=== PATIENT | male | born 1955 | race Caucasian/White ===

== ENCOUNTER 2016-03-23 09:58 | Emergency (ER) | payer BC ==
[2016-03-23 10:14] VITALS: BP 159/102
--- NOTE | 2016-03-23 11:18 | UC ---
Respiratory Complaint HPI - HPI Summary HPI Summary: 10 DAYS OF SINUS CONGESTION, CHEST CONGESTIONS, PND, PRODUCTUVE COUGH AND PAROXYSMS OF COUGH. DENIES FEVER. HAS HAD SEVERAL EPISODES OF LOOSE STOOLS. - History of Current Complaint Chief Complaint: UCRespiratory Stated Complaint: CHEST CONGESTION Time Seen by Provider: 03/23/16 11:11 Hx Obtained From: Patient Onset/Duration: Gradual Onset, Lasting Days, Still Present Timing: Constant Severity Initially: Moderate Severity Currently: Moderate Pain Intensity: 0 Pain Scale Used: 0-10 Numeric Character: Cough: Productive Aggravating Factors: Nothing Alleviating Factors: Nothing Associated Signs And Symptoms: Positive: URI, Nasal Congestion, Hoarseness, Sinus Discomfort - Allergies/Home Medications Allergies/Adverse Reactions: Allergies Allergy/AdvReac Type Severity Reaction Status Date / Time Lisinopril Allergy Intermediate swelling Verified 05/29/15 08:36 in groin PMH/Surg Hx/FS Hx/Imm Hx Endocrine History Of: Reports: Diabetes - TYPE 2 Denies: Thyroid Disease Cardiovascular History Of: Reports: Hypertension - ON MEDS Denies: Cardiac Disorders Respiratory History Of: Reports: Bronchitis - HX OF Denies: COPD, Asthma GI/ History Of: Denies: Ulcer - Surgical History Surgical History: Yes Surgery Procedure, Year, and Place: LEFT KNEE, 1982, [facility] [place]. RIGHT [place]NEE 2003, [facility] [place]. Hydrocele Surgery 2011, 2015. RIGHT KNEE 03/2014, [facility] [place] - Family History Known Family History: Negative: Hypertension - Social History Alcohol Use: Weekly Alcohol Amount: 8 PER WEEK Substance Use Type: None Smoking Status (MU): Former Smoker Type: Cigarettes Amount Used/How Often: SOCIAL Have You Smoked in the Last Year: No When Did the Patient Quit Smoking/Using Tobacco: 40 YEARS AGO 1974 Household Exposure Type: Cigarettes Review of Systems Constitutional: Negative ENT: Nasal Discharge Respiratory: Cough Cardiovascular: Negative Gastrointestinal: Negative All Other Systems Reviewed And Are Negative: Yes Physical Exam Triage Information Reviewed: Yes Appearance: Well-Appearing, No Pain Distress, Well-Nourished Vital Signs: Initial Vital Signs Temp 97.4 F 03/23/16 10:08 Pulse 68 03/23/16 10:08 Resp 22 03/23/16 10:08 BP 159/102 03/23/16 10:08 Pulse Ox 98 03/23/16 10:08 Vital Signs Reviewed: Yes Eyes: Positive: Conjunctiva Clear ENT: Positive: Hearing grossly normal, Pharyngeal erythema, TMs normal Neck: Positive: Supple, Nontender, No Lymphadenopathy Respiratory Exam: Normal Cardiovascular Exam: Normal Abdomen Description: Positive: Soft Musculoskeletal: Positive: No Edema Neurological: Positive: Alert Psychological: Positive: Age Appropriate Behavior Skin: Negative: rashes UC Diagnostic Evaluation - Laboratory O2 Sat by Pulse Oximetry: 98 Respiratory Course/Dx - Differential Dx/Diagnosis Provider Diagnoses: ACUTE BRONCHITIS Discharge - Discharge Plan Condition: Stable Disposition: HOME Prescriptions: Azithromycin [Azithromycin 500 MG TAB] 500 mg PO DAILY #5 tab Patient Education Materials: Acute Bronchitis (ED) Referrals: Efrain Traylor MD [Primary Care Provider] - If Needed
== END 2016-03-23 11:26 | disposition home or self-care (01) ==
LOC: UCEAST 09:58
DX: J20.9 Acute bronchitis, unspecified (principal); Z88.8 Allergy status to other drugs, medicaments and biological substances; Z87.891 Personal history of nicotine dependence
CPT/HCPCS: 99212; G0463

== ENCOUNTER → 2016-12-25 02:06 | Emergency (ER) | payer BC ==
[~2016-12-25 02:06] MED LIST: HYDROmorphone INJ* 1 MG/ML CARPUJECT SYRINGE IM ONE; Methocarbamol TAB* 500 MG PO ONE
[2016-12-25 04:39] LABS: Urine Bacteria Absent (Absent); Urine Bilirubin Negative (Negative); Urine Glucose 3+(>=500 mg/dL) (Negative); Urine Nitrite Negative (Negative)
--- NOTE | 2016-12-25 06:53 | ED ---
Mario Hutson Rebecca, scribed for Teo Li MD on 12/25/16 at 0327 . GI/ HPI - HPI Summary HPI Summary: Pt is a 61 y/o M who presents to ED c/o bilateral testicular swelling. Sx began about 1 month ago with the sx worsening tonight. Additionally c/o lumbar back pain since 0000. Associated pain is currently 10/10. Sx unchanged by palpation, aggravated by movement and alleviated by walking, stating that its "hard to find a comfortable spot." Denies fever, hematuria, difficulty urinating and scrotal numbness. PMHx inguinal hernias, back pain that is not similar to his current symptoms. Allergy to Lisinopril. - History of Current Complaint Chief Complaint: EDUrogenitalProblems Stated Complaint: LOWER BACK PAIN//BOTH TESTICLES SWOLLEN Hx Obtained From: Patient Onset/Duration: Still Present Timing: Lasting Days - For Larisa Current Severity: Severe Pain Intensity: 10 Location of Pain: Other - Lumbar back pain Associated Signs and Symptoms: Negative: Fever, Hematuria Aggravating Factor(s): Movement - Allergy/Home Medications Allergies/Adverse Reactions: Allergies Allergy/AdvReac Type Severity Reaction Status Date / Time Lisinopril Allergy Intermediate swelling Verified 10/07/16 10:14 in groin PMH/Surg Hx/FS Hx/Imm Hx Endocrine/Hematology History: Reports: Hx Diabetes - TYPE 2 Denies: Hx Thyroid Disease Cardiovascular History: Reports: Hx Hypertension - ON MEDS, Hx Peripheral Vascular Disease - LOWER LEGS Denies: Other Cardiovascular Problems/Disorders Respiratory History: Reports: Hx Sleep Apnea - current CPAP user, compliant Denies: Hx Asthma, Hx Chronic Obstructive Pulmonary Disease (COPD) GI History: Reports: Hx Gastroesophageal Reflux Disease - ON MEDS, Other GI Disorders - UMBILICAL HERNIA Denies: Hx Ulcer History: Reports: Other Problems/Disorders - LEFT HYDROCELE Musculoskeletal History: Reports: Hx Arthritis - KNEES Denies: Other Musculoskeletal History Sensory History: Reports: Hx Contacts or Glasses - GLASSES Denies: Hx Hearing Aid Opthamlomology History: Reports: Hx Contacts or Glasses - GLASSES - Surgical History Surgery Procedure, Year, and Place: LEFT KNEE, 1982, [facility] [place]. RIGHT KNEE 2003, [facility] [place]. Hydrocele Surgery 2011, 2016. RIGHT KNEE 03/2014, [facility] [place] Hx Anesthesia Reactions: No Infectious Disease History: No Infectious Disease History: Denies: Hx Clostridium Difficile, Hx Hepatitis, Hx Human Immunodeficiency Virus (HIV), Hx of Known/Suspected MRSA, Hx Shingles, Hx Tuberculosis, Hx Known/ Suspected VRE, Hx Known/Suspected VRSA, History Other Infectious Disease, Traveled Outside the [place] in Last 30 Days - Family History Known Family History: Negative: Hypertension - Social History Alcohol Use: Occasionally Alcohol Amount: 8 PER WEEK Substance Use Type: Reports: None Smoking Status (MU): Former Smoker Type: Cigarettes Amount Used/How Often: SOCIAL Have You Smoked in the Last Year: No Review of Systems Negative: Fever Positive: other - Bilateral testicular swelling; NEGATIVE: Difficulty urinating and scrotal numbness. Negative: hematuria Positive: Other - Lumbar back pain All Other Systems Reviewed And Are Negative: Yes Physical Exam Triage Information Reviewed: Yes Vital Signs On Initial Exam: Initial Vitals Temp Pulse Resp BP Pulse Ox 97.3 F 67 16 185/71 98 12/25/16 02:10 12/25/16 02:10 12/25/16 02:10 12/25/16 02:10 12/25/16 02:10 Vital Signs Reviewed: Yes Appearance: Positive: Pain Distress - Mild Skin: Positive: Warm, Skin Color Reflects Adequate Perfusion Head/Face: Positive: Normal Head/Face Inspection Eyes: Positive: Normal ENT: Positive: Normal ENT inspection Neck: Positive: Supple Respiratory/Lung Sounds: Positive: Clear to Auscultation, Breath Sounds Present Cardiovascular: Positive: RRR, Pulses are Symmetrical in both Upper and Lower Extremities, S1, S2. Negative: Murmur Abdomen Description: Positive: Nontender, Soft, Hernia @ - Large periumbilical hernia withou incarceration that is nontender, Other: - no pulsatile masses Bowel Sounds: Positive: Present Male Genital Exam: Positive: other - No saddle anesthesia; normal voiding; no urinary retention Musculoskeletal: Positive: Other - His lower back has minimal right-sided paraspinal tenderness diffusely with no midline tenderness; no appreciable weakness of the LE; he is walking normally Neurological: Positive: Normal, Sensory/Motor Intact, Alert, Oriented to Person Place, Time Psychiatric: Positive: Normal - Lorri Coma Scale Coma Scale Total: 15 Diagnostics - Vital Signs Vital Signs Temp Pulse Resp BP Pulse Ox 12/25/16 03:00 61 94 12/25/16 02:10 97.3 F 67 16 185/71 98 - Laboratory Lab Results: Lab Results 12/25/16 Range/Units 03:30 Urine Color Yellow Urine Appearance Cloudy Urine pH 6.0 (5-9) Ur Specific [place] 1.023 (1.010-1.030) Urine Protein 1+(30 mg/dl) H (Negative) Urine Ketones Trace H (Negative) Urine Blood 3+ H (Negative) Urine Nitrate Negative (Negative) Urine Bilirubin Negative (Negative) Urine Urobilinogen Negative (Negative) Ur Leukocyte Esterase Negative (Negative) Urine WBC (Auto) Trace(0-5/hpf) (Absent) Urine RBC (Auto) 3+(>10/hpf) H (Absent) Urine Bacteria Absent (Absent) Urine Glucose 3+(>=500 mg/dl) H (Negative) Lab Statement: Any lab studies that have been ordered have been reviewed, and results considered in the medical decision making process. GIGU Course/Dx - Course Course Of Treatment: pt feels much better after meds her ein the department, complains of mild residual b/l lower back pain improved from start of visit. i instructed pt to fu with urology for hematuria for further workup, agrees to and understnads dc instructions. given nature of pain, similarity to prior episodes, and b/l pain, i have a low suspicion for kidney stones - Diagnoses Provider Diagnoses: Back pain Discharge - Discharge Plan Condition: Improved Disposition: HOME Prescriptions: oxyCODONE TAB* [Roxycodone TAB 5 mg*] 5 mg PO Q6H PRN #10 tab MDD 4 tabs PRN Reason: Pain - Moderate To Severe Patient Education Materials: Back Pain (ED) Referrals: Efrain Traylor MD [Primary Care Provider] - The documentation as recorded by the Mario sanford Rebecca accurately reflects the service I personally performed and the decisions made by me, Teo Li MD.
[2016-12-25 08:59] VITALS: BP 143/76
== END | disposition home or self-care (01) ==
LOC: ED 02:06
DX: M54.9 Dorsalgia, unspecified (principal); M54.5 Low back pain; Z87.891 Personal history of nicotine dependence
CPT/HCPCS: 81003; 81015; 96372; 99282; A9270-GY; J1170

== ENCOUNTER 2018-03-01 15:19 | Emergency (ER) | payer BC ==
[2018-03-01 15:26] VITALS: BP 188/93
--- NOTE | 2018-03-01 15:56 | UC ---
Abdominal Pain Male HPI - HPI Summary HPI Summary: few days of diarrhea then constipation fever chills fatigue-pain llq--seems to be voiding frequently - History of Current Complaint Chief Complaint: UCGU Stated Complaint: BACK PAIN, AND FREQUENT URINATION Time Seen by Provider: 03/01/18 15:40 Hx Obtained From: Patient Onset/Duration: Sudden Onset, Lasting Days, Still Present Timing: Constant Pain Intensity: 10 Pain Scale Used: 0-10 Numeric Location: Discrete At: LLQ Radiates: Yes Radiates to: Back Character: Cramping, Sharp, Tearing Aggravating Factor(s): Nothing Alleviating Factor(s): Nothing Associated Signs And Symptoms: Positive: Fever, Constipation, Diarrhea - Allergies/Home Medications Allergies/Adverse Reactions: Allergies Allergy/AdvReac Type Severity Reaction Status Date / Time lisinopril Allergy groin Verified 03/01/18 15:27 swelling PMH/Surg Hx/FS Hx/Imm Hx Previously Healthy: No Endocrine History: Diabetes Cardiovascular History: Hypertension GI/ History: Gastroesophageal Reflux - Surgical History Surgical History: Yes Surgery Procedure, Year, and Place: LEFT KNEE, 1982, [facility] [place]. RIGHT KNEE 2003, [facility] [place]. Hydrocele Surgery 2011, 2015. RIGHT KNEE 03/2014, [facility] [place] - Family History Known Family History: Negative: Hypertension - Social History Occupation: Unemployed Lives: With Family Alcohol Use: Occasionally Alcohol Amount: 8 PER WEEK Substance Use Type: None Smoking Status (MU): Former Smoker Type: Cigarettes Amount Used/How Often: SOCIAL Have You Smoked in the Last Year: No When Did the Patient Quit Smoking/Using Tobacco: 40 YEARS AGO 1974 Household Exposure Type: Cigarettes Review of Systems All Other Systems Reviewed And Are Negative: Yes Constitutional: Positive: Chills, Fatigue Skin: Positive: Negative Eyes: Positive: Negative ENT: Positive: Negative Respiratory: Positive: Negative Cardiovascular: Positive: Negative Gastrointestinal: Positive: Abdominal Pain, Diarrhea Genitourinary: Positive: Frequency Motor: Positive: Negative Neurovascular: Positive: Negative Musculoskeletal: Positive: Negative Neurological: Positive: Negative Psychological: Positive: Negative Is Patient Immunocompromised?: No Physical Exam Triage Information Reviewed: Yes Appearance: Ill-Appearing, Pain Distress, Obese Vital Signs: Initial Vital Signs Temp 99.0 F 03/01/18 15:24 Pulse 96 03/01/18 15:24 Resp 18 03/01/18 15:24 BP 188/93 03/01/18 15:24 Pulse Ox 98 03/01/18 15:24 Vital Signs Reviewed: Yes Eye Exam: Normal Eyes: Positive: Conjunctiva Clear ENT Exam: Normal ENT: Positive: Normal ENT inspection, Hearing grossly normal. Negative: Trismus , Muffled voice, Hoarse voice Dental Exam: Normal Neck exam: Normal Neck: Positive: Supple, Nontender, No Lymphadenopathy Respiratory Exam: Normal Respiratory: Positive: Chest non-tender, Lungs clear, Normal breath sounds, No respiratory distress, No accessory muscle use Cardiovascular Exam: Normal Cardiovascular: Positive: RRR, No Murmur, Pulses Normal, Brisk Capillary Refill Abdominal Exam: Other Abdomen Description: Positive: Distended, Hernia @ - umbilical, Other: - tender LLQ. Negative: CVA Tenderness (R), CVA Tenderness (L), Hepatomegaly, McBurney' s Point Tenderness Bowel Sounds: Positive: Present Musculoskeletal Exam: Normal Musculoskeletal: Positive: Strength Intact, ROM Intact, No Edema Neurological Exam: Normal Neurological: Positive: Alert, Muscle Tone Normal Psychological Exam: Normal Skin Exam: Normal Diagnostics - Laboratory Diagnostic Studies Completed/Ordered: ua-[id number] Abd Pain Male Course/Dx - Course Course Of Treatment: npo, to hospital for further assessment of LLQ abdomen pain - Differential Dx/Clinical Impression Provider Diagnosis: Abdominal pain, acute, left lower quadrant Discharge - Sign-Out/Discharge Documenting (check all that apply): Patient Departure All imaging exams completed and their final reports reviewed: No Studies - Discharge Plan Condition: Guarded Disposition: HOME-RECOMMEND TO ED Patient Education Materials: Acute Abdominal Pain (ED), Hypertension (ED) Referrals: Efrain Traylor MD [Primary Care Provider] - - Billing Disposition and Condition Condition: GUARDED Disposition: Home-Recommend to ED
== END 2018-03-01 16:02 | disposition home health service (06) ==
LOC: UCEAST 15:19
DX: R10.32 Left lower quadrant pain (principal); M54.9 Dorsalgia, unspecified; R35.0 Frequency of micturition; E11.9 Type 2 diabetes mellitus without complications; I10 Essential (primary) hypertension; Z88.8 Allergy status to other drugs, medicaments and biological substances; Z87.891 Personal history of nicotine dependence
CPT/HCPCS: 81003; 99212; G0463

== ENCOUNTER 2018-03-01 16:16 | Emergency (ER) | payer BC ==
[2018-03-01] MEDS ORDERED: NS 0.9% 1000 ML* 1,000 ML IV ONE (16:35)
[2018-03-01] MEDS ORDERED: Ondansetron INJ* 2 MG/ML VIAL IV ONE (16:35)
[2018-03-01] MEDS ORDERED: Ketorolac INJ* 30 MG/ML 1 ML VIAL IV PUSH ONE (16:35)
--- NOTE | 2018-03-01 16:54 | ED ---
Abdominal Pain/Male - HPI Summary HPI Summary: A 62 y/o M presents to ED with c/o intermittent episodes of v/d onset three days ago. He was sent from urgent care for further evaluation to r/o diverticulitis. Associated sx: abd pain, back pain, chills, decreased appetite. He denies previous abd surgeries. His last colonoscopy was 5 years ago and was without issue. He is scheduled for one in March 2018. - History of Current Complaint Chief Complaint: EDFlankPain Stated Complaint: BACK AND ABD PAIN Time Seen by Provider: 03/01/18 16:48 Hx Obtained From: Patient, Family/Advertising Executive - Onset/Duration: Lasting Days, Still Present Timing: Constant Severity Initially: Moderate Severity Currently: Severe Pain Intensity: 10 Pain Scale Used: 0-10 Numeric Location: Diffuse - abd pain Radiates: Yes Radiates to: Back Associated Signs And Symptoms: Positive: Back Pain, Decreased Appetite, Vomiting , Diarrhea, Other - pos: chills - Allergies/Home Medications Allergies/Adverse Reactions: Allergies Allergy/AdvReac Type Severity Reaction Status Date / Time lisinopril Allergy groin Verified 03/02/18 09:51 swelling PMH/Surg Hx/FS Hx/Imm Hx Previously Healthy: No Endocrine/Hematology History: Reports: Hx Diabetes - TYPE 2 Denies: Hx Thyroid Disease Cardiovascular History: Reports: Hx Hypertension, Hx Peripheral Vascular Disease - LOWER LEGS Denies: Other Cardiovascular Problems/Disorders Respiratory History: Reports: Hx Sleep Apnea - current CPAP user, compliant Denies: Hx Asthma, Hx Chronic Obstructive Pulmonary Disease (COPD) GI History: Reports: Hx Gastroesophageal Reflux Disease - ON MEDS, Other GI Disorders - UMBILICAL HERNIA Denies: Hx Ulcer History: Reports: Other Problems/Disorders - LEFT HYDROCELE Musculoskeletal History: Reports: Hx Arthritis - KNEES Denies: Other Musculoskeletal History Sensory History: Reports: Hx Contacts or Glasses - GLASSES Denies: Hx Hearing Aid Opthamlomology History: Reports: Hx Contacts or Glasses - GLASSES - Surgical History Surgery Procedure, Year, and Place: LEFT KNEE, 1982, [facility] [place]. RIGHT KNEE 2003, [facility] [place]. Hydrocele Surgery 2011, 2015. RIGHT KNEE 03/2014, [facility] [place] Hx Anesthesia Reactions: No Infectious Disease History: No Infectious Disease History: Denies: Hx Clostridium Difficile, Hx Hepatitis, Hx Human Immunodeficiency Virus (HIV), Hx of Known/Suspected MRSA, Hx Shingles, Hx Tuberculosis, Hx Known/ Suspected VRE, Hx Known/Suspected VRSA, History Other Infectious Disease, Traveled Outside the [place] in Last 30 Days - Family History Known Family History: Negative: Hypertension - Social History Occupation: Employed Full-time Lives: With Family Alcohol Use: Occasionally Alcohol Amount: 8 PER WEEK Substance Use Type: Reports: None Smoking Status (MU): Former Smoker Type: Cigarettes Amount Used/How Often: SOCIAL Have You Smoked in the Last Year: No Review of Systems Positive: Chills, Other - pos: decreased appetite. Negative: Fever Positive: Abdominal Pain, Vomiting, Diarrhea Musculoskeletal: Other - pos: back pain All Other Systems Reviewed And Are Negative: Yes Physical Exam - Summary Physical Exam Summary: Appearance: Well-appearing, Well-nourished, lying in bed comfortably Skin: Warm, dry, no obvious rash Eyes: sclera anicteric, no conjunctival pallor ENT: mucous membranes moist, pharynx appears normal Neck: Supple, nontender Respiratory: Clear to auscultation, no signs of respiratory distress Cardiovascular: Normal S1, S2. No murmurs. Normal distal pulses in tibial and radial bilaterally. Abdomen: Soft, LLQ tenderness, normal active bowel sounds present Musculoskeletal: Normal, Strength/ROM Intact Neurological: A&Ox3, awake and alert, mentation is normal, speech is fluent and appropriate Psychiatric: affect is normal, does not appear anxious or depressed Triage Information Reviewed: Yes Vital Signs On Initial Exam: Initial Vitals Temp Pulse Resp BP Pulse Ox 98.1 F 89 16 165/78 96 03/01/18 16:22 03/01/18 16:22 03/01/18 16:22 03/01/18 16:22 03/01/18 16:22 Vital Signs Reviewed: Yes Diagnostics - Vital Signs Vital Signs Temp Pulse Resp BP Pulse Ox 03/01/18 16:22 98.1 F 89 16 165/78 96 - Laboratory Result Diagrams: 03/01/18 17:10 03/01/18 17:10 Lab Statement: Any lab studies that have been ordered have been reviewed, and results considered in the medical decision making process. - Radiology ABD KUB XR Radiology Interpretation Completed By: ED Physician Summary of Radiographic Findings: Delayed opacification of L collecting system. No radio opaque stone but there is a cut off of contrast in proximal third of ureter. - CT A/P CT CT Interpretation Completed By: Radiologist Summary of CT Findings: IMPRESSION: 1. Mildly obstructing 8 mm calculus proximal third left ureter. 2. Numerous stable hepatic cysts. No followup indicated. 3. Bilateral inguinal and umbilical hernias. No strangulation. 4. Distal colonic diverticulosis. ED provider has reviewed this report. - EKG 1644 Cardiac Rate: NL - 91 bpm EKG Rhythm: Sinus Rhythm Summary of EKG Findings: NSR at 91 BPM, P waves, QRS complex, and T waves are within normal limits, T waves and intervals are normal, no ischemic changes. Re-Evaluation - Re-Evaluation 1 Re-Evaluation Time: 19:55 Change: Improved Comment: Pt in bathroom. says patient's pain is under-control. 2 Re-Evaluation Time: 20:07 Change: Unchanged Comment: Discussing results, and plans for DC and f/u with uro tomorrow. Abdominal Pain Fem Course/Dx - Course Course Of Treatment: Pt is a 62 y/o M presenting with intermittent episodes of v/d onset three days ago. He was sent from urgent care for further evaluation to r/o diverticulitis. Associated sx: back pain, chills, decreased appetite. He denies previous abd surgeries. His last colonoscopy was 5 years ago. NSR at 91 BPM, P waves, QRS complex, and T waves are within normal limits, T waves and intervals are normal, no ischemic changes. Lab work reveals: elevated WBC, BUN, creatinine, glucose, and a CRP: 38.64. UA results show 2+ blood and 3+ RBC. A/P CT shows "1. Mildly obstructing 8 mm calculus proximal third left ureter. 2. Numerous stable hepatic cysts. No followup indicated. 3. Bilateral inguinal and umbilical hernias. No strangulation. 4. Distal colonic diverticulosis.". Consulted with Dr. Burt, urology, who recommends KUB prior to departure, D/C home NPO with pain medication, Flomax, and will see in office tomorrow at 0800. KUB ABD XR shows Delayed opacification of L collecting system. No radio opaque stone but there is a cut off of contrast in proximal third of ureter. Will D/C home to f/u with urology tomorrow morning with Percocet, Zofran, Flomax. - Diagnoses Provider Diagnoses: Renal colic on left side - Provider Notifications Discussed Care Of Patient With: Nj Burt - uro Time Discussed With Above Provider: 20:00 Instructed by Provider To: Other - Will see in office tomorrow at 0800, NPO until appt. Recommends D/C home with pain medication, Flomax. Requesting KUB prior to departure. Discharge - Sign-Out/Discharge Documenting (check all that apply): Patient Departure - DC - Discharge Plan Condition: Improved Disposition: HOME Prescriptions: oxyCODONE/Acetamin 5/325 MG* [Percocet 5/325 TAB*] 2 tab PO Q4H PRN #20 tab MDD 6 tabs PRN Reason: Pain Tamsulosin CAP* [Flomax CAP*] 0.4 mg PO DAILY #10 cap Patient Education Materials: Kidney Stones (ED) Referrals: Nj Burt MD [Medical Doctor] - Additional Instructions: Dr. Burt would like to see you in his office at 8 am tomorrow. Do not have anything to eat or drink after midnight tonight, in case you need a surgical procedure tomorrow. - Billing Disposition and Condition Condition: IMPROVED Disposition: Home - Attestation Statements Document Initiated by Sonia: Yes Documenting Scribe: Solomon Austin Provider For Whom Sonia is Documenting (Include Credential): Dr. Keith Watkins MD Scribe Attestation: Solomon Hutson, scribed for Dr. Keith Watkins MD on 03/03/18 at 1015. Scribe Documentation Reviewed: Yes Provider Attestation: The documentation as recorded by the Solomon sanford accurately reflects the service I personally performed and the decisions made by me, Dr. Keith Watkins MD Status of Scribe Document: Viewed
[2018-03-01 17:23] LABS: ABS Basophils 0.1 10^3/ul (0-0.2); ABS Eosinophils 0 10^3/ul (0-0.6); ABS Lymphocytes 1.5 10^3/ul (1.0-4.8); ABS Monocytes 0.9 10^3/ul (0-0.8); ABS Neutrophils 13.4 10^3/ul (1.5-7.7); ABS Nucleated RBC 0 10^3/ul; Eosinophil % 0.3 %; Hematocrit 43 % (42-52); Hemoglobin 14.1 g/dl (14.0-18.0); Lymphocyte % 9.5 %; Mean Corpuscular HGB Conc 33 g/dl (31-36); Mean Corpuscular Hemoglobin 27 pg (27-31); Mean Corpuscular Volume 82 fL (80-94); Mean Platelet Volume 7.7 fL (7.4-10.4); Nucleated Red Blood Cells % 0; Platelet Count 347 10^3/ul (150-450); Red Blood Count 5.19 10^6/ul (4.00-5.40); Red Cell Distribution Width 17 % (10.5-15); White Blood Count 15.9 10^3/ul (3.5-10.8)
[2018-03-01 17:35] LABS: Albumin 3.8 g/dL (3.2-5.2); Albumin/Globulin Ratio 1.2 (1-3); BUN/Creatinine Ratio 15.3 (8-20); C Reactive Protein 38.64 mg/L (<8.01); Calcium 9.3 mg/dL (8.6-10.3); EGFR Non-African American 37.5 (>60); Globulin 3.2 g/dL (2-4); Potassium 3.9 mmol/L (3.5-5.0); Total Bilirubin 0.5 mg/dL (0.2-1.0)
[2018-03-01] MEDS ORDERED: Iodixanol* (CONTRAST) 320 MG/ML 100 ML SDV IV ONE (17:37)
[2018-03-01 18:52] LABS: Urine Appearance Cloudy; Urine Bacteria Absent (Absent); Urine Bilirubin Negative (Negative); Urine Blood 2+ (Negative); Urine Color Yellow; Urine Glucose Negative (Negative); Urine Ketones Negative (Negative); Urine Nitrite Negative (Negative); Urine Protein Negative (Negative); Urine Red Blood Cell 3+(>10/hpf) (Absent); Urine Specific Gravity 1.018 (1.010-1.030); Urine Urobilinogen Negative (Negative); Urine White Blood Cell Absent (Absent)
[2018-03-01] MEDS ORDERED: Tamsulosin CAP* 0.4 MG PO ONE (20:02)
[2018-03-01 21:53] VITALS: BP 232/109
== END 2018-03-01 21:49 | disposition home or self-care (01) ==
LOC: ED 16:16
DX: N23 Unspecified renal colic (principal); E11.9 Type 2 diabetes mellitus without complications; I10 Essential (primary) hypertension; I73.9 Peripheral vascular disease, unspecified; G47.30 Sleep apnea, unspecified; K21.9 Gastro-esophageal reflux disease without esophagitis; Z87.891 Personal history of nicotine dependence
CPT/HCPCS: 36415; 74018; 74177; 80053; 81003; 81015; 83605; 83690; 84484; 85025; 86140; 93005; 96361; 96374; 96375; 99282; J1885; J2405; Q9967

== ENCOUNTER 2018-03-02 08:49 | Day surgery (SDC) | payer BC ==
--- NOTE | 2018-03-02 09:44 | HP ---
CC: Dr. Traylor * ADMITTING HISTORY AND PHYSICAL: DATE OF ADMISSION: 03/02/18 ADMITTING DIAGNOSES: 1. Left hydronephrosis. 2. Obstructing calculus, left proximal ureter. PLANNED PROCEDURE TODAY: Left stent insertion (to be followed in near future by lithotripsy). SURGEON: Dr. Burt. INDICATION: Jose Clay is a 62-year-old diabetic who had been evaluated in the emergency room on 03/01/18 because of left flank pain, nausea, and vomiting. He was noted to have an elevated white count of 15.4 and elevated creatinine of 1.8 and a 8 mm obstructing calculus in the left proximal. Ureter. PAST MEDICAL HISTORY: Significant for: 1. Diabetes mellitus. 2. Hypertension. 3. History of bilateral hydrocele. MEDICATIONS ON ADMISSION: 1. Hydrochlorothiazide 12.5 mg daily. 3. Metformin 1000 mg twice a day. 4. Amlodipine 10 mg daily. 5. Aspirin 81 mg a day. 6. Omeprazole 20 mg daily. 7. Toujeo 42 units subcutaneously daily. 8. Myrbetriq 25 mg daily. 9. Pravastatin 20 mg daily. ALLERGIES AND INTOLERANCES: LISINOPRIL. REVIEW OF SYSTEMS: He denies any chest pain or shortness of breath. PHYSICAL EXAMINATION GENERAL: Reveals uncomfortable-appearing, middle-aged, overweight gentleman. VITAL SIGNS: Blood pressure is 140/70, pulse 75 per minute, oxygen saturation 95% on room air, temperature 96.5. LUNGS: Clear bilaterally. CARDIOVASCULAR: Regular rate and rhythm. S1, S2. ABDOMEN: Soft with left flank tenderness. He has a large umbilical and bilateral inguinal hernias. IMPRESSION: A 62-year-old diabetic with obstructing calculus in the left proximal ureter and elevated white blood cell count and elevated serum creatinine. PLANNED PROCEDURE: Urgent left stent insertion to be followed in the near future by lithotripsy. [id number]/[facility] #: [id number]
[2018-03-02] MEDS ORDERED: cefTRIAXone(*) 2 GM ADDV.VIAL IVPB ONE (09:47)
[2018-03-02] MEDS ORDERED: Iohexol 180 (CONTRAST) 10 ML SDV IV ONE (11:40)
[2018-03-02] MEDS ORDERED: fentaNYL* 50 MCG/ML 2 ML VIAL (100 MCG VIAL) ONE (11:48)
[2018-03-02] MEDS ORDERED: Propofol* 10 MG/ML 20 ML BTL ONE (11:48)
[2018-03-02] MEDS ORDERED: Midazolam* 1 MG/ML 5 ML VIAL (5 MG) ONE (11:48)
[2018-03-02] MEDS ORDERED: Lidocaine 2% JELLY* 20 ML (for OR use) ONE (12:20)
[2018-03-02] MEDS ORDERED: KETAMINE HCL* 50 MG/ML 10 ML VIAL ONE (12:26)
[2018-03-02] MEDS ORDERED: Naloxone* 0.4 MG/ML 1 ML VIAL IV PRN (12:28)
[2018-03-02] MEDS ORDERED: fentaNYL* 50 MCG/ML 2 ML VIAL (100 MCG VIAL) IV PRN (12:28)
[2018-03-02] MEDS ORDERED: Ondansetron INJ* 2 MG/ML VIAL IV PRN (12:28)
[2018-03-02] MEDS ORDERED: HYDROmorphone INJ1* 1 MG/ML SYRINGE IV PRN (12:28)
[2018-03-02 13:37] VITALS: BP 130/68
--- NOTE | 2018-03-02 19:21 | OP ---
CC: Dr. Traylor * DATE OF OPERATION: 03/02/18 - [facility] DATE OF : 51 SURGEON: Nj Burt MD ANESTHESIOLOGIST: Dr. Valentin. ANESTHESIA: Intravenous sedation. PREOPERATIVE DIAGNOSES: 1. Left hydronephrosis. 2. Obstructing calculus left proximal ureter. POSTOPERATIVE DIAGNOSES: 1. Left hydronephrosis. 2. Obstructing calculus left proximal ureter. 3. Multiple tiny bladder calculi. OPERATIVE PROCEDURE: Cystoscopy, left retrograde pyelogram, left ureteral calculus manipulation and left stent insertion. COMPLICATIONS: None. POSTOPERATIVE CONDITION: Stable. STENT USED: A 6-Equatorial Guinean stent, left ureter. OPERATIVE FINDINGS: 1. Moderately enlarged prostate. 2. Multiple tiny bladder calculi. 3. Obstructing calculus, left proximal ureter. INDICATIONS: Jose Clay is a 62-year-old gentleman who is evaluated for an 8-mm obstructing calculus in the left proximal ureter. He is now being brought in for urgent left stent insertion to be followed in near future by lithotripsy. DESCRIPTION OF PROCEDURE: After induction of intravenous sedation and 2% Xylocaine general local anesthesia, cystoscopy was performed. The urethra was normal. The prostate was xlxg-[id number] enlarged. The bladder was examined and multiple tiny bladder calculi were noted. Using an Ellik evacuator , these were irrigated out. The left orifice was identified. Retrograde pyelogram revealed left hydronephrosis. Because of the patient's body habitus, the calculus was not easy to see on fluoroscopy but the open-ended catheter was advanced and I could feel the resistance and the calculus was then manipulated proximally. A 6-Equatorial Guinean stent was introduced and positioned under fluoroscopy with good proximal and distal positioning obtained. The bladder was emptied. The patient tolerated the procedure satisfactorily and was transferred back to recovery area in stable condition. [id number]/[facility] #: [id number] MTDD
== END 2018-03-02 13:35 | disposition home or self-care (01) ==
LOC: OR 08:49
PROVIDERS: ATTEND Urology
DX: N13.2 Hydronephrosis with renal and ureteral calculous obstruction (principal); E11.9 Type 2 diabetes mellitus without complications; Z79.84 Long term (current) use of oral hypoglycemic drugs; I10 Essential (primary) hypertension; G47.33 Obstructive sleep apnea (adult) (pediatric); E66.9 Obesity, unspecified
CPT/HCPCS: 74018; 74420; C1876; J0696; J2250; J2704; J3010

== ENCOUNTER 2018-03-23 12:09 | Day surgery (SDC) | payer BC ==
[~2018-03-23 12:09] MED LIST changes: +Buffered Lidocaine 1% SYRIN* 1 ML/SYRINGE INTRADERM ONE; +Famotidine IV* 10 MG/ML 2 ML (20 mg) IV ONE; -HYDROmorphone INJ* 1 MG/ML CARPUJECT SYRINGE IM ONE; +Lactated Ringers 1000 ML Bag* 1,000 ML IV SCH; -Methocarbamol TAB* 500 MG PO ONE; +Metoclopramide IV* 5 MG/ML 2 ML VIAL IV SLOW PU ONE
[2018-03-23] MEDS ORDERED: Metoclopramide IV* 5 MG/ML 2 ML VIAL ONE (12:56)
[2018-03-23] MEDS ORDERED: Famotidine IV* 10 MG/ML 2 ML (20 mg) ONE (12:57)
[2018-03-23] MEDS ORDERED: fentaNYL* 50 MCG/ML 2 ML VIAL (100 MCG VIAL) ONE (13:25)
[2018-03-23] MEDS ORDERED: Midazolam* 1 MG/ML 2 ML VIAL (2 MG) ONE (13:25)
[2018-03-23] MEDS ORDERED: Propofol* 10 MG/ML 20 ML BTL ONE (13:26)
[2018-03-23] MEDS ORDERED: cefTRIAXone(*) 2 GM ADDV.VIAL IVPB ONE (13:29)
[2018-03-23] MEDS ORDERED: HYDROmorphone INJ1* 1 MG/ML SYRINGE IV PRN (13:59)
[2018-03-23] MEDS ORDERED: DiMENhydriNATE IV* 50 MG/ML VIAL IV PUSH PRN (13:59)
[2018-03-23] MEDS ORDERED: Naloxone* 0.4 MG/ML 1 ML VIAL IV PRN (13:59)
[2018-03-23] MEDS ORDERED: fentaNYL* 50 MCG/ML 2 ML VIAL (100 MCG VIAL) IV PRN (13:59)
[2018-03-23] MEDS ORDERED: Ondansetron INJ* 2 MG/ML VIAL ONE (14:07)
[2018-03-23] MEDS ORDERED: Furosemide IV* 10 MG/ML 2 ML VIAL (20 MG) ONE (14:08)
[2018-03-23 16:04] VITALS: BP 141/67
--- NOTE | 2018-03-23 22:07 | OP ---
CC: Dr. Traylor * DATE OF OPERATION: 03/23/18 - [facility] DATE OF : 51 SURGEON: Nj Burt MD ANESTHESIOLOGIST: Dr. Ohara ANESTHESIA: General. PRE-OP DIAGNOSIS: Calculus left ureter. POST-OP DIAGNOSIS: Calculus left ureter. OPERATIVE PROCEDURE: Shockwave lithotripsy of calculus left ureter. COMPLICATIONS: None. INDICATIONS: Jose Clay is a 62-year-old gentleman who had undergone urgent left stent insertion because of an obstructing calculus in the left ureter. He is now being brought in for lithotripsy. POSTOPERATIVE CONDITION: Stable. DESCRIPTION OF PROCEDURE: After induction of general anesthesia, the patient was placed on the lithotripsy table in supine position. The calculus which had been in the proximal left ureter appeared to have migrated somewhat more distally but was still able to be visualized along side the left stent. Shockwave lithotripsy was commenced at a rate of 60 shocks per minute. Periodic imaging revealed good localization and a total of 2400 shocks were administered. The patient tolerated the procedure satisfactorily and was transferred back to the recovery area in stable condition. [id number]/[facility] #: [id number] MTDD
== END 2018-03-23 16:08 | disposition home or self-care (01) ==
LOC: OR 12:09
PROVIDERS: ATTEND Urology
DX: N20.1 Calculus of ureter (principal); E11.9 Type 2 diabetes mellitus without complications; Z79.4 Long term (current) use of insulin; Z79.84 Long term (current) use of oral hypoglycemic drugs; Z68.41 Body mass index [BMI] 40.0-44.9, adult; G47.33 Obstructive sleep apnea (adult) (pediatric); I10 Essential (primary) hypertension; Z87.891 Personal history of nicotine dependence; I73.9 Peripheral vascular disease, unspecified; M19.90 Unspecified osteoarthritis, unspecified site
CPT/HCPCS: 74018; J0696; J1940; J2250; J2405; J2704; J2765; J3010

== ENCOUNTER → 2018-11-20 | Day surgery (SDC) | payer BC, MEDICARE ==
[~2018-11-20] MED LIST changes: +Bupivacaine 0.5% W/EPI SDV* 10 ML VIAL INJ ONE; +DiMENhydriNATE IV* 50 MG/ML VIAL IV PUSH PRN; -Famotidine IV* 10 MG/ML 2 ML (20 mg) IV ONE; +Glycopyrrolate IV* 0.2 MG/ML 1 ML VIAL ONE; +HYDROmorphone INJ1* 1 MG/ML SYRINGE IV PRN; +Ketorolac INJ* 30 MG/ML 1 ML VIAL ONE; +Lidocaine 1% INJ* 10 MG/ML 30 ML SDV ONE; -Metoclopramide IV* 5 MG/ML 2 ML VIAL IV SLOW PU ONE; +Midazolam* 1 MG/ML 5 ML VIAL (5 MG) ONE; +Naloxone* 0.4 MG/ML 1 ML VIAL IV PRN; +Ondansetron INJ* 2 MG/ML VIAL IV PRN; +Ondansetron INJ* 2 MG/ML VIAL ONE; +Propofol* 10 MG/ML 20 ML BTL ONE; +Rocuronium* 10 MG/ML VIAL ONE; +Sugammadex * 200 MG/2 ML VIAL IV PUSH ONE; +ceFAZolin 1 GM ADVAN(*) 1 GM ADDV.VIAL IVPB ONE; +ceFAZolin 2 GM in NS PREMIX(*) 2 GM/100 ML BAG IVPB ONE; +fentaNYL* 50 MCG/ML 2 ML VIAL (100 MCG VIAL) IV PRN; +fentaNYL* 50 MCG/ML 2 ML VIAL (100 MCG VIAL) ONE; +oxyCODONE/Acetamin 5/325 MG* TAB ONE; +oxyCODONE/Acetamin 5/325 MG* TAB PO PRN
--- NOTE | 2018-11-20 10:50 | OP ---
Operative Report - Blank - Operative Report Date of Operation: 11/20/18 Note: OPERATIVE REPORT Pre-op: Bilateral inguinal hernias Post-Op: Same, Left indirect inguinal hernia Procedure:Open repair with mesh of left indirect inguinal hernia Surgeon: MD Geoff Asst: PEDRO PABLO Spicer Anes: general with local , Dr. Valentin IVF:1.5 liter of crystalloid EBL:min Specimen: none Drain: none Wound: 1 Findings: Large left indirect inguinal hernia repaired with mesh. Due to the duration of time required to repair the hernia and the extensive amount of dissection, the right inguinal hernia was not repaired at this time. To PACU
[2018-11-20 11:47] VITALS: BP 132/79
--- NOTE | 2018-11-20 21:51 | OP ---
CC: Dr. Efrain Traylor * DATE OF OPERATION: 11/20/18 - [facility] DATE OF : 51 SURGEON: Alvarez Tellez MD METAL [employer]ATER OPERATOR: PEDRO PABLO Wadsworth ANESTHESIOLOGIST: Dr. Valentin. ANESTHESIA: General with local. PRE-OP DIAGNOSIS: Bilateral inguinal hernias. POST-OP DIAGNOSIS: OPERATIVE PROCEDURE: Open repair with mesh of a large left indirect inguinal hernia. ESTIMATED BLOOD LOSS: Minimal. IV FLUIDS: 1 L of crystalloids. SPECIMENS: None. WOUND CLASSIFICATION: 1. DRAINS: None. COMPLICATIONS: None. FINDINGS: The patient had known bilateral indirect hernias, but that both extended down into the scrotum and been longstanding. Initial plan was to attempt bilateral open repairs today, however, the left inguinal hernia was very large and difficult procedure and anticipate a prolonged recovery and I made the decision not to proceed with the right inguinal hernia repair today. This was discussed as a possibility in the office and documented in the preoperative history and physical. DESCRIPTION OF PROCEDURE: Written informed consent was obtained and preoperative antibiotics were administered. Both groins were marked with indelible ink and the patient was taken to the operating room. Sequential compression devices, warming blanket were applied, and general anesthesia was administrated. A Chowdary catheter was inserted. The lower abdomen and both groins were prepped and draped in usual sterile fashion. Time-out verification was completed. Initially, the left groin was addressed. This appeared to be the larger hernia and this extended well down into the scrotum and was not completely reducible. 0.25% Marcaine was infiltrated extensively in the wound and an oblique incision was made, carried down through a significant amount of subcutaneous fat and the external oblique aponeurosis was identified. The external ring was noted and these fibers have been opened in the direction of the fibers. With some difficulty, I encircled what appeared to be a rather large fat- containing inguinal hernia, the pubic tubercle with a one quarter inch Sharon drain. The next 2-1/2 hours were then spent reducing the large amount of fat and extending down into the scrotum, that was done with sharp and blunt dissection. That did not deliver the left testicle up into the field of view, however. After tedious dissection, we were able to identify the internal ring with a large amount of extraperitoneal fat that apparently had herniated through and this was able to be reduced. We were able to identify the spermatic cord including the vas deferens and these were protected from injury throughout. I did not identify specific nerves. The epigastric vessels were identified in the direct space, appeared to be without a hernia. There was large lipoma of the cord, which was and excised and not sent for specimen. Once I had adequately identified the appropriate anatomy and reduced the large amount of fat in through the internal ring, I did not identify a true peritoneal sac although there may have been certainly one in the large amount of fat that was reduced. Once the anatomy had been identified, we were able to expose the conjoint tendon completely. A ProGrip Precut Covidien mesh was then placed and sutured to the pubic tubercle with horizontal 0 Vicryl suture. We were able to keep the hernia reduced with digital pressure and the mesh was sutured to the conjoint tendon superiorly with interrupted 0 Vicryl suture and to the inguinal ligament inferiorly with a running 0 Vicryl suture. This reconstructed the inguinal ring nicely, however, I was concerned that the precut mesh did not cover with enough overlap the superior conjoint tendon and some of the musculature laterally. I then placed a second piece of moderate thickness poly propylene mesh cut to the appropriate mesh and sutured this once again to the pubic tubercle and then split it into tails and sutured this higher up on to the conjoint tendon anteriorly at multiple places and the tails were then crossed beyond the internal ring where the spermatic cord exited and sutured to the musculature laterally with interrupted 0 Vicryl suture. This was cut to the appropriate size and also sutured to the inguinal ligament inferiorly with a running 0 Vicryl suture. The second piece of mesh covered the indirect and direct spaces much nicer than my original piece of mesh, which I left in place. Hemostasis was assured. Additional Marcaine was placed. The external oblique aponeurosis was closed with a running 3- 0 Vicryl suture. I closed the subcutaneous tissue in 2 layers of 3-0 running Vicryl suture. The skin was approximated with subcuticular 4-0 Vicryl suture and Steri-Strips and sterile dressings were applied. The patient tolerated the procedure well and was taken to the recovery room in stable condition. [id number]/[facility] #: [id number] KEILA
== END | disposition home or self-care (01) ==
LOC: OR 06:01
PROVIDERS: ATTEND Surgery
DX: K40.20 Bilateral inguinal hernia, without obstruction or gangrene, not specified as recurrent (principal); E66.01 Morbid (severe) obesity due to excess calories; Z68.41 Body mass index [BMI] 40.0-44.9, adult; E11.9 Type 2 diabetes mellitus without complications; Z79.84 Long term (current) use of oral hypoglycemic drugs; G47.33 Obstructive sleep apnea (adult) (pediatric); I10 Essential (primary) hypertension; E78.5 Hyperlipidemia, unspecified
CPT/HCPCS: A9270-GY; C1781; J0690; J1885; J2250; J2405; J2704; J3010

== ENCOUNTER 2019-02-16 15:02 | Day surgery (SDC) | payer MEDICARE ==
--- NOTE | 2019-02-16 09:55 | HP ---
CC: Dr. Traylor * ADMITTING HISTORY AND PHYSICAL: DATE OF ADMISSION: 02/16/19 ADMITTING DIAGNOSES: 1. Left hydronephrosis. 2. Left proximal ureteral calculus. 3. Left distal ureteral calculus. PLANNED PROCEDURE TODAY: Left ureteroscopy, possible laser and stent insertion (possibly to be followed in near future by lithotripsy). SURGEON: Dr. Burt. HISTORY OF PRESENT ILLNESS: Jose Clay is a 63-year-old diabetic with a history of recurrent renal calculi. He was evaluated for left flank pain and nausea, and was noted to have 2 calculi in the left ureter as described on the CT scan, one being an 8-mm calculus in the proximal left ureter and an additional 6-mm calculus in the distal left ureter with left hydronephrosis. PAST MEDICAL HISTORY: Significant for: 1. Recurrent renal calculi. 2. Morbid obesity. 3. Diabetes mellitus. 4. Obstructive severe sleep apnea. 5. Nonalcoholic fatty liver. 6. Bilateral inguinal hernias. PAST SURGICAL HISTORY: Significant for: 1. Recent left inguinal hernia repair in November of 2018. 2. Left hydrocelectomy in 2015. 3. Right hydrocelectomy in 2011. 4. Knee arthroscopy in 2014. MEDICATIONS ON ADMISSION: Include: 1. Oxycodone p.r.n. 2. Metformin 1000 mg twice a day. 3. Tamsulosin 0.4 mg daily. 4. Omeprazole 20 mg daily. 5. Mirabegron 50 mg daily. 6. Insulin Toujeo 34 units subcutaneously twice a day. 7. Ibuprofen p.r.n. 8. Hydrochlorothiazide 12.5 mg daily. 9. Aspirin 81 mg daily. 10. Amlodipine 10 mg daily. ALLERGIES AND INTOLERANCES: LISINOPRIL. FAMILY HISTORY: Negative for stones. SOCIAL HISTORY: Smoking History: He is a nonsmoker. REVIEW OF SYSTEMS: He denies any chest pain or shortness of breath. PHYSICAL EXAMINATION GENERAL: Reveals a pleasant overweight middle-aged gentleman. VITAL SIGNS: Blood pressure is 160/80, pulse 86 per minute, respirations 18 per minute. LUNGS: Clear bilaterally. CARDIOVASCULAR: Regular rate and rhythm. S1, S2. ABDOMEN: Soft with a large periumbilical hernia. In addition, he has large bilateral inguinal hernias, more prominent on the right side. There is left flank tenderness. IMPRESSION: A 63-year-old diabetic with 2 calculi in the left ureter and left hydronephrosis. PLAN: Left ureteroscopy, possible laser and stent insertion (possibly to be followed in near future by lithotripsy). [id number]/[facility] #: [id number] MTDD
[~2019-02-16 15:02] MED LIST changes: -Bupivacaine 0.5% W/EPI SDV* 10 ML VIAL INJ ONE; -DiMENhydriNATE IV* 50 MG/ML VIAL IV PUSH PRN; +Famotidine IV* 10 MG/ML 2 ML (20 mg) IV ONE; -Glycopyrrolate IV* 0.2 MG/ML 1 ML VIAL ONE; -HYDROmorphone INJ1* 1 MG/ML SYRINGE IV PRN; -Ketorolac INJ* 30 MG/ML 1 ML VIAL ONE; -Lidocaine 1% INJ* 10 MG/ML 30 ML SDV ONE; -Midazolam* 1 MG/ML 5 ML VIAL (5 MG) ONE; -Naloxone* 0.4 MG/ML 1 ML VIAL IV PRN; -Ondansetron INJ* 2 MG/ML VIAL IV PRN; -Ondansetron INJ* 2 MG/ML VIAL ONE; +Ondansetron ODT TAB* 4 MG PO ONE; -Propofol* 10 MG/ML 20 ML BTL ONE; -Rocuronium* 10 MG/ML VIAL ONE; -Sugammadex * 200 MG/2 ML VIAL IV PUSH ONE; -ceFAZolin 1 GM ADVAN(*) 1 GM ADDV.VIAL IVPB ONE; -ceFAZolin 2 GM in NS PREMIX(*) 2 GM/100 ML BAG IVPB ONE; -fentaNYL* 50 MCG/ML 2 ML VIAL (100 MCG VIAL) IV PRN; -fentaNYL* 50 MCG/ML 2 ML VIAL (100 MCG VIAL) ONE; -oxyCODONE/Acetamin 5/325 MG* TAB ONE; -oxyCODONE/Acetamin 5/325 MG* TAB PO PRN
[2019-02-16] MEDS ORDERED: Ondansetron ODT TAB* 4 MG ONE (15:18)
[2019-02-16] MEDS ORDERED: Famotidine IV* 10 MG/ML 2 ML (20 mg) ONE (15:19)
[2019-02-16] MEDS ORDERED: fentaNYL* 50 MCG/ML 2 ML VIAL (100 MCG VIAL) ONE (15:55)
[2019-02-16] MEDS ORDERED: Midazolam* 1 MG/ML 5 ML VIAL (5 MG) ONE (15:56)
[2019-02-16] MEDS ORDERED: cefTRIAXone(*) 2 GM ADDV.VIAL IVPB ONE (16:04)
[2019-02-16] MEDS ORDERED: Iohexol 180 (CONTRAST) 10 ML SDV IV ONE (16:44)
[2019-02-16] MEDS ORDERED: HYDROmorphone INJ1* 1 MG/ML SYRINGE IV PRN (16:49)
[2019-02-16] MEDS ORDERED: fentaNYL* 50 MCG/ML 2 ML VIAL (100 MCG VIAL) IV PRN (16:49)
[2019-02-16] MEDS ORDERED: oxyCODONE TAB* 5 MG TAB PO PRN (16:49)
[2019-02-16] MEDS ORDERED: DiMENhydriNATE IV* 50 MG/ML VIAL IV PUSH PRN (16:49)
[2019-02-16] MEDS ORDERED: PROCHLORPERAZINE INJ 5 MG/ML 2 ML VIAL IV PRN (16:49)
[2019-02-16] MEDS ORDERED: Naloxone* 0.4 MG/ML 1 ML VIAL IV PRN (16:49)
[2019-02-16] MEDS ORDERED: KETAMINE HCL* 50 MG/ML 10 ML VIAL ONE (17:50)
[2019-02-16] MEDS ORDERED: Propofol* 10 MG/ML 20 ML BTL ONE (18:11)
[2019-02-16] MEDS ORDERED: Lidocaine 2% PF * 5 ML VIAL ONE (18:11)
[2019-02-16] MEDS ORDERED: PROCHLORPERAZINE INJ 5 MG/ML 2 ML VIAL ONE (18:11)
[2019-02-16] MEDS ORDERED: Acetaminophen IV 1GM/100ML * 100 ML ONE (18:32)
[2019-02-16] MEDS ORDERED: Levofloxacin 500 MG IVPREMIX(* 500 MG/100 ML BAG IVPB ONE (19:15)
[2019-02-16 20:06] VITALS: BP 146/78
--- NOTE | 2019-02-17 12:14 | OP ---
CC: Dr. Traylor * DATE OF OPERATION: 02/16/19 - [facility] DATE OF : 51 SURGEON: Nj Burt MD ANESTHESIOLOGIST: Dr. Woods. ANESTHESIA: General. PRE-OP DIAGNOSES: 1. Left hydronephrosis. 2. Left proximal ureteral calculus. 3. Left distal ureteral calculus. POST-OP DIAGNOSES: 1. Left hydronephrosis. 2. Left proximal ureteral calculus. 3. Left distal ureteral calculus. OPERATIVE PROCEDURE: 1. Cystoscopy, left retrograde pyelogram, left ureteroscopy, and stone retraction. 2. Left pyeloscopy and laser lithotripsy of left renal calculus and left stent insertion. COMPLICATIONS: None. STENT USED: A 8.5-Maltese 28 cm black silicone stent, left ureter. INDICATION: Jose Clay is a 63-year-old gentleman with a history of recurrent renal calculi who was evaluated for persistent left flank pain. OPERATIVE FINDINGS: 1. Prostate enlargement. 2. Few small bladder calculi. 3. A 4 to 5 mm calculus left distal ureter. 4. A 9 to 10 mm calculus left renal pelvis with left hydronephrosis. DESCRIPTION OF PROCEDURE: After induction of general anesthesia, the patient was placed in dorsal lithotomy position. Sequential compression devices were in place and functioning. Initial cystoscopy revealed normal appearing urethra and a moderately enlarged prostate. The bladder was examined and few tiny bladder calculi were noted, which were irrigated out. A guidewire was introduced into the left ureter. Retrograde pyelogram revealed left hydronephrosis. A 6-Maltese semirigid ureteroscope was introduced and advanced under direct vision. In the distal ureter, a 4 to 5 mm soft calculus with the appearance of a uric acid calculus was noted. This was fairly friable and broke up into multiple fragments with 3 pronged grasper and the fragments were removed. The ureteroscope was then carefully advanced proximally. Just below the ureteropelvic junction, a much larger 9 to 10 mm calculus was noted. Because proximal ureter and renal pelvis was dilated, this calculus migrated into the renal pelvis. A 550 micron laser probe was introduced and the laser lithotripsy was carried out with partial fragmentation observed. The calculus later migrated into a upper to mid pole calyx, and since the patient had quite a bit of cloudy urine backed up in the kidney along with multiple small clots, I did not elect to proceed with flexible ureteroscopy at the present time. An 8.5-Maltese 28 cm silicone stent was introduced and positioned under fluoroscopy in the left ureter with good proximal and distal positioning of stent. Because both calculi had an appearance of uric acid calculi, my plan is to go ahead and start him on potassium citrate 20 mEq twice a day in an effort to dissolve the calculus which is now in the kidney and this can then be monitored by ultrasound in the near future. The patient tolerated the procedure satisfactorily and was transferred back to the recovery area in stable condition. [id number]/[facility] #: [id number] MTDD
[2019-02-20 00:36] LABS: Interpretation 100% Uric acid
== END 2019-02-16 20:20 | disposition home or self-care (01) ==
LOC: OR 15:02
PROVIDERS: ATTEND Urology
DX: N13.2 Hydronephrosis with renal and ureteral calculous obstruction (principal); E11.9 Type 2 diabetes mellitus without complications; Z79.84 Long term (current) use of oral hypoglycemic drugs; G47.33 Obstructive sleep apnea (adult) (pediatric); K76.0 Fatty (change of) liver, not elsewhere classified; E66.01 Morbid (severe) obesity due to excess calories; Z79.4 Long term (current) use of insulin
CPT/HCPCS: 74018; 74420; 82365; 88300; A9270-GY; C1876; J0696; J0780; J1956; J2250; J2704; J3010

== ENCOUNTER → 2019-03-04 15:46 | Day surgery (SDC) | payer MEDICARE ==
[~2019-03-04 15:46] MED LIST changes: +Acetaminophen IV 1GM/100ML * 100 ML ONE; +DiMENhydriNATE IV* 50 MG/ML VIAL IV PUSH ONE; +DiMENhydriNATE IV* 50 MG/ML VIAL ONE; +Famotidine IV* 10 MG/ML 2 ML (20 mg) ONE; +HYDROmorphone INJ1* 1 MG/ML SYRINGE IV PRN; +Iohexol 180 (CONTRAST) 10 ML SDV IV ONE; +KETAMINE HCL* 50 MG/ML 10 ML VIAL ONE; +Lidocaine 2% PF * 5 ML VIAL ONE; +Midazolam* 1 MG/ML 5 ML VIAL (5 MG) ONE; +Naloxone* 0.4 MG/ML 1 ML VIAL IV PRN; +Ondansetron ODT TAB* 4 MG ONE; +PROCHLORPERAZINE INJ 5 MG/ML 2 ML VIAL IV PRN; +Propofol* 10 MG/ML 20 ML BTL ONE; +cefTRIAXone(*) 2 GM ADDV.VIAL IVPB ONE; +fentaNYL* 50 MCG/ML 2 ML VIAL (100 MCG VIAL) IV PRN; +fentaNYL* 50 MCG/ML 2 ML VIAL (100 MCG VIAL) ONE; +oxyCODONE TAB* 5 MG TAB PO PRN
--- NOTE | 2019-03-04 15:58 | HP ---
CC: Dr. Traylor DATE OF ADMISSION: 03/04/2019. AGE: 63-year-old male. ADMITTING DIAGNOSES: 1. Calculus right proximal ureter. 2. Right hydronephrosis. PLANNED PROCEDURE: Right ureteroscopy, possible laser and stent insertion. SURGEON: Dr. Nj Burt. HISTORY OF PRESENT ILLNESS: Jose Clay is a 63-year-old diabetic who had recently been evaluated and treated for left ureteral calculus. He now started complaining of right flank pain and nausea and CT scan revealed a 6 x 3 mm calculus in the right proximal ureter with right hydronephrosis and increased serum creatinine (1.95). He was given the option of trying conservative management to see if he could pass the calculus, but because of the degree of pain, he would like to have endoscopic treatment and is now being brought in for right ureteroscopy and stent insertion. PAST MEDICAL HISTORY: Significant for: 1. Recurrent renal calculi recently on the left side. 2. Diabetes mellitus. 3. Morbid obesity. 4. Nonalcoholic fatty liver. 5. Severe obstructive sleep apnea. PAST SURGICAL HISTORY: Significant for: 1. Recent left ureteroscopy and stent in February of 2019. 2. Left inguinal hernia repair. 3. Left hydrocelectomy. 4. Right hydrocelectomy. 5. Knee arthroscopy. MEDICATIONS ON ADMISSION: 1. Metformin 1,000 mg b.i.d. 2. Omeprazole 20 mg once a day. 3. Tamsulosin 0.4 mg daily. 4. Hydrochlorothiazide 12.5 mg daily. 5. Amlodipine 10 mg daily. 6. Aspirin 81 mg daily. 7. Toujeo insulin 34 units subcutaneously twice a day. 8. Mirabegron 50 mg daily. 9. Oxycodone prn. ALLERGIES/INTOLERANCES: LISINOPRIL. FAMILY HISTORY: Negative for stones. SMOKING HISTORY: He is a nonsmoker. REVIEW OF SYSTEMS: He denies any chest pain or shortness of breath. He does have moderate obesity. PHYSICAL EXAMINATION GENERAL: Reveals a pleasant middle-aged gentleman who appears uncomfortable. VITAL SIGNS: Blood pressure is 132/70, pulse 89 per minute, temperature 96.7, oxygen saturation 96 percent on room air. CARDIOVASCULAR: Regular rate and rhythm, S1, S2. LUNGS: Clear bilaterally. ABDOMEN: Soft with a large umbilical hernia and large bilateral inguinal hernias. There is mild bilateral flank tenderness. IMPRESSION: Okolg-tarj-dgrk-old gentleman with diabetes mellitus and an obstructing calculus in the right proximal ureter. PLAN: Planned procedure is right ureteroscopy, possible laser and stent insertion. [id number]/[facility] #: [id number] MTDD
[2019-03-04 19:03] VITALS: BP 129/56
--- NOTE | 2019-03-06 00:33 | OP ---
CC: Dr. Traylor; Dr. Burt* OPERATIVE REPORT: DATE OF OPERATION: 03/04/19 - [facility] DATE OF : 51 SURGEON: Nj Burt MD. ANESTHESIOLOGIST: Dr. Woods ANESTHESIA: General PRE-OP DIAGNOSES: 1. Calculus right proximal ureter. 2. Right hydronephrosis POST-OP DIAGNOSES: 1. Calculus right proximal ureter. 2. Right hydronephrosis. 3. Stricture right ureter. OPERATIVE PROCEDURE: Cystoscopy right retrograde, right ureteroscopy, and right stent insertion. COMPLICATIONS: None. STENT USED: 6-Guamanian stent right ureter. INDICATIONS: Jose Clay is a 63-year-old gentleman with a history of recurrent renal calculi. He had recently undergone successful treatment of left - sided calculi and now presented with right flank pain, nausea secondary to a 6 mm x 3 mm calculus in the right proximal ureter. He was also noted to have increased serum creatinine and is being brought in for urgent right stent insertion. OPERATIVE FINDINGS: Right hydronephrosis with stricture right distal ureter and tortuosity of right distal ureter. POSTOPERATIVE CONDITION: Stable. DESCRIPTION OF PROCEDURE: After induction of general anesthesia, the patient was placed in dorsal lithotomy position. Sequential compression devices were in place and functioning. Initial cystoscopy revealed a normal appearing urethra, a moderately enlarged prostate. The bladder was examined. The left- sided stent which had been placed a few weeks ago was in normal position. The right orifice was identified. A guide wire was introduced into the right ureter. A few centimeter above the bladder, there was noted to be some tortuosity of the ureter where the ureter instead of being straight had a somewhat acute angle bend before straightening out again in the mid to proximal extent of the ureter. The guide wire was carefully advanced into the proximal collecting system and an open-ended catheter was advanced. There was obvious resistance overcoming the tortuosity, but I was able to get the open-ended catheter up to the mid ureter to confirm adequate placement of the wire. Next, a 6-Guamanian semirigid ureteroscope was introduced and advanced into the distal right ureter under direct vision. A few centimeters above the ureterovesical junction, I encountered a stricture and this was the location of the tortuosity of the ureter. I did not wish to proceed in order to try and avoid perforating the ureter given the stricture and the tortuosity and elected to go ahead and place a 6- Guamanian stent which was successfully done under fluoroscopic monitoring. Since his stones on the other side have been uric acid , it is likely that the right-sided calculus is also uric acid and the plan will be to try and dissolve the calculus by keeping him on potassium citrate. He will require longer term followup because of the stricture and the tortuosity and my plan is to consider leaving the stent in for 4 to 6 weeks and then possibly consider a repeat ureteroscopy at that time. The patient tolerated the procedure satisfactorily and was transferred back to the recovery area in stable condition. [id number]/[facility] #: [id number] KEILA
== END | disposition home or self-care (01) ==
LOC: OR 15:46
PROVIDERS: ATTEND Urology
DX: N13.1 Hydronephrosis with ureteral stricture, not elsewhere classified (principal); Z87.442 Personal history of urinary calculi; E11.9 Type 2 diabetes mellitus without complications; Z79.84 Long term (current) use of oral hypoglycemic drugs; Z79.4 Long term (current) use of insulin; K76.0 Fatty (change of) liver, not elsewhere classified; G47.33 Obstructive sleep apnea (adult) (pediatric); E66.01 Morbid (severe) obesity due to excess calories
CPT/HCPCS: 74420; A9270-GY; C1876; J0696; J1240; J2250; J2704; J3010

== ENCOUNTER 2019-04-19 05:53 | Day surgery (SDC) | payer MEDICARE ==
--- NOTE | 2019-04-01 08:58 | HP ---
CC: Dr. Traylor * ADMITTING HISTORY AND PHYSICAL: DATE OF ADMISSION: 04/19/19 ADMITTING DIAGNOSES: 1. Calculus, right ureter. 2. Stricture, right ureter. PLANNED PROCEDURE: Right retrograde, right ureteroscopy, and stent replacement. SURGEON: Dr. Burt. HISTORY OF PRESENT ILLNESS: Jose Clay is a 63-year-old gentleman with a history of recurrent multiple bilateral renal and ureteral calculi. He had undergone successful treatment of left ureteral calculus and then had urgent right stent insertion on 03/04/19; at that time, he was noted to have a right ureteral stricture and has also been on potassium citrate to try and dissolve his calculi (stone analysis had revealed uric acid calculi.) He is now being brought in for further evaluation and management of the right ureteral stricture and right ureteral calculus. PAST MEDICAL HISTORY: Significant for: 1. Diabetes mellitus. 2. Nonalcoholic fatty liver. 3. Obstructive sleep apnea. 4. Recurrent bilateral renal and ureteral calculi. 5. Diabetes mellitus. PAST SURGICAL HISTORY: Significant for: 1. Bilateral ureteral stents in February 2019. 2. Left inguinal hernia repair (with partial recurrence). 3. Left and right hydrocelectomy. 4. Knee arthroscopy. MEDICATIONS ON ADMISSION: Include: 1. Omeprazole 20 mg daily. 2. Hydrochlorothiazide 12.5 mg daily. 3. Metformin 1000 mg twice a day. 4. Tamsulosin 0.4 mg daily. 5. Aspirin 81 mg daily. 6. Amlodipine 10 mg daily. 7. Myrbetriq 50 mg daily. 8. Oxycodone p.r.n. 9. Toujeo insulin 34 units subcutaneously twice a day. ALLERGIES AND INTOLERANCES: LISINOPRIL. FAMILY HISTORY: Negative for stones. SOCIAL HISTORY: Smoking history: He is a nonsmoker. REVIEW OF SYSTEMS: He denies any shortness of breath or chest pain. PHYSICAL EXAMINATION GENERAL: Revealed a pleasant middle aged, morbidly obese gentleman. VITAL SIGNS: Blood pressure is 140/76; pulse 70 per minute, regular; oxygen saturation 98% on room air; temperature 97.5. LUNGS: Clear bilaterally. CARDIOVASCULAR EXAM: Regular rate and rhythm. S1, S2. ABDOMEN: Soft. He has a large umbilical hernia as well as large bilateral inguinal hernias, larger on the right side. He has mild right flank tenderness. IMPRESSION: A 63-year-old gentleman with stricture right ureter as well as right ureteral calculus. PLAN: Planned procedure is right retrograde, right ureteroscopy, and stent replacement. [id number]/[facility] #: [id number] [facility]ENTERAyla
[~2019-04-19 05:53] MED LIST changes: -Acetaminophen IV 1GM/100ML * 100 ML ONE; -DiMENhydriNATE IV* 50 MG/ML VIAL IV PUSH ONE; -DiMENhydriNATE IV* 50 MG/ML VIAL ONE; -Famotidine IV* 10 MG/ML 2 ML (20 mg) IV ONE; -Famotidine IV* 10 MG/ML 2 ML (20 mg) ONE; -HYDROmorphone INJ1* 1 MG/ML SYRINGE IV PRN; -Iohexol 180 (CONTRAST) 10 ML SDV IV ONE; -KETAMINE HCL* 50 MG/ML 10 ML VIAL ONE; -Lactated Ringers 1000 ML Bag* 1,000 ML IV SCH; -Lidocaine 2% PF * 5 ML VIAL ONE; -Midazolam* 1 MG/ML 5 ML VIAL (5 MG) ONE; -Naloxone* 0.4 MG/ML 1 ML VIAL IV PRN; -Ondansetron ODT TAB* 4 MG ONE; -Ondansetron ODT TAB* 4 MG PO ONE; -PROCHLORPERAZINE INJ 5 MG/ML 2 ML VIAL IV PRN; -Propofol* 10 MG/ML 20 ML BTL ONE; -cefTRIAXone(*) 2 GM ADDV.VIAL IVPB ONE; -fentaNYL* 50 MCG/ML 2 ML VIAL (100 MCG VIAL) IV PRN; -fentaNYL* 50 MCG/ML 2 ML VIAL (100 MCG VIAL) ONE; -oxyCODONE TAB* 5 MG TAB PO PRN
[2019-04-19] MEDS ORDERED: Famotidine IV* 10 MG/ML 2 ML (20 mg) IV ONE (06:00)
[2019-04-19] MEDS ORDERED: Lactated Ringers 1000 ML Bag* 1,000 ML IV SCH (06:00)
[2019-04-19] MEDS ORDERED: Buffered Lidocaine 1% SYRIN* 1 ML/SYRINGE INTRADERM ONE (06:16)
[2019-04-19] MEDS ORDERED: Famotidine IV* 10 MG/ML 2 ML (20 mg) ONE (06:16)
[2019-04-19] MEDS ORDERED: cefTRIAXone(*) 2 GM ADDV.VIAL IVPB ONE (06:16)
[2019-04-19] MEDS ORDERED: Iohexol 180 (CONTRAST) 10 ML SDV IV ONE (06:52)
[2019-04-19] MEDS ORDERED: fentaNYL* 50 MCG/ML 2 ML VIAL (100 MCG VIAL) ONE (07:16)
[2019-04-19] MEDS ORDERED: Midazolam* 1 MG/ML 2 ML VIAL (2 MG) ONE (07:16)
[2019-04-19] MEDS ORDERED: Propofol* 10 MG/ML 20 ML BTL ONE (07:35)
[2019-04-19] MEDS ORDERED: Dexamethasone IV* 4 MG/ML 1 ML (4 MG) ONE (07:35)
[2019-04-19] MEDS ORDERED: Ketorolac INJ* 30 MG/ML 1 ML VIAL ONE (07:35)
[2019-04-19] MEDS ORDERED: Lidocaine 2% PF * 5 ML VIAL ONE (07:35)
[2019-04-19] MEDS ORDERED: KETAMINE HCL* 50 MG/ML 10 ML VIAL ONE (07:47)
[2019-04-19] MEDS ORDERED: fentaNYL* 50 MCG/ML 2 ML VIAL (100 MCG VIAL) IV PRN (07:48)
[2019-04-19] MEDS ORDERED: oxyCODONE TAB* 5 MG TAB PO PRN (07:48)
[2019-04-19] MEDS ORDERED: DiMENhydriNATE IV* 50 MG/ML VIAL IV PUSH PRN (07:48)
[2019-04-19] MEDS ORDERED: Naloxone* 0.4 MG/ML 1 ML VIAL IV PRN (07:48)
[2019-04-19] MEDS ORDERED: Ondansetron INJ* 2 MG/ML VIAL IV PRN (07:48)
[2019-04-19] MEDS ORDERED: Acetaminophen IV 1GM/100ML * 100 ML ONE (07:49)
[2019-04-19 09:47] VITALS: BP 154/93
--- NOTE | 2019-04-19 20:40 | OP ---
CC: Dr. Traylor * DATE OF OPERATION: 04/19/19 - [facility] DATE OF : 51 SURGEON: Nj Burt MD ANESTHESIOLOGIST: Dr. Camacho. ANESTHESIA: General. PRE-OP DIAGNOSES: 1. Right hydronephrosis. 2. Stricture, right ureter. POST-OP DIAGNOSES: 1. Right hydronephrosis. 2. Stricture, right ureter. OPERATIVE PROCEDURE: Cystoscopy, right retrograde pyelogram, right ureteroscopy , and right stent replacement. COMPLICATIONS: None. STENT USED: 8.5-Nepali 28 cm silicon stent, right ureter. OPERATIVE FINDINGS: Area of stricture right distal ureter with the sharp angle to the right ureter in the distal right ureter area, no definite calculus seen. POSTOPERATIVE CONDITION: Stable. INDICATIONS: Jose Clay is a 63-year-old gentleman with history of recurrent bilateral renal calculi. On the last ureteroscopy, he was noted to have a stricture in the right distal ureter with a fairly acute angle of the ureter in that area. I am not sure whether this is related to a large hernia that he has on the right side, possibly causing distortion of the bladder and distal right ureter. DESCRIPTION OF PROCEDURE: After induction of general anesthesia, the patient was placed in dorsal lithotomy position. Sequential compression devices were in place and functioning. Initial cystoscopy revealed a normal-appearing urethra , mildly enlarged prostate, and a normal-appearing bladder. The previously placed stent was removed without difficulty. Right retrograde pyelogram again revealed a sharp tortuosity at the level of the distal right ureter with a fairly acute angle and then straightening of the remainder of the ureter. Mild fullness of the collecting system was noted. A 6-Nepali semi-rigid ureteroscope was introduced and advanced under direct vision. The ureteroscope was advanced and the distal most 2 to 3 cm of the ureter appeared normal; just above that I could see the area of the tortuosity which I could not negotiate with the semi-rigid ureteroscope. On the retrograde, I did not see any definite filling defects in this area and the ureter was carefully dilated using an 8-Nepali open-ended catheter, followed by successful placement of an 8.5 Nepali 28 cm black silicone stent. My plan is to leave the stent in for 6 to 8 weeks to allow for more passive dilatation of the ureter and then possibly follow this up with an imaging study , possibly a CT scan in about 4 weeks to assess for any residual calculi. The patient tolerated the procedure satisfactorily and was transferred back to the recovery area in stable condition. [id number]/[facility] #: [id number] KEILA
== END 2019-04-19 10:00 | disposition home or self-care (01) ==
LOC: OR 05:53
PROVIDERS: ATTEND Urology
DX: N13.1 Hydronephrosis with ureteral stricture, not elsewhere classified (principal); E11.9 Type 2 diabetes mellitus without complications; Z79.84 Long term (current) use of oral hypoglycemic drugs; K76.0 Fatty (change of) liver, not elsewhere classified; G47.33 Obstructive sleep apnea (adult) (pediatric); Z87.442 Personal history of urinary calculi; I10 Essential (primary) hypertension; Z68.41 Body mass index [BMI] 40.0-44.9, adult; N40.0 Benign prostatic hyperplasia without lower urinary tract symptoms
CPT/HCPCS: 74018; 74420; C1876; J0696; J1100; J1885; J2250; J2704; J3010